=== PATIENT | male | born 1950 | race Caucasian/White ===

== ENCOUNTER 2024-02-25 06:48 | Day surgery (SDC) | payer OTHER ==
[2024-02-25] VITALS (12 sets, daily range): BP systolic 88–130; BP diastolic 40–70; PULSE 59–69; RESP 14–18; TEMP 97.5–98.1
[~2024-02-25] VITALS: Ht 188 cm; Wt 93.0 kg
[~2024-02-25 06:48] MED LIST: CETI10CA5 PO; CLOP-31 PO; FURO20TA4 PO; MULT-1367 PO; ROSU10TA72 PO; TRAZ-187 PO; VALS80TA30 PO
[2024-02-25] MEDS: 0.9%NACL 1000ML 1,000 ML IV ONE (07:52)
[2024-02-25] MEDS ORDERED: proPOFol 10 MG/ML 20ML VIAL IV ONE (10:22)
== END 2024-02-25 12:25 | disposition home or self-care (01) ==
LOC: ENDO 06:48 → DAH 06:48 → ENDO 12:25
PROVIDERS: ATTEND Internal Medicine Gastroenterology
DX: K92.1 Melena (principal); I10 Essential (primary) hypertension; E78.5 Hyperlipidemia, unspecified; Z86.73 Personal history of transient ischemic attack (TIA), and cerebral infarction without residual deficits; Z79.899 Other long term (current) drug therapy; Z80.0 Family history of malignant neoplasm of digestive organs; Z53.8 Procedure and treatment not carried out for other reasons
CPT/HCPCS: 45378; J7030 ×2; J2704; A4215; A7002; G0105; J3490

== ENCOUNTER 2024-02-26 06:24 | Day surgery (SDC) | payer OTHER ==
[~2024-02-26] VITALS: Ht 188 cm; Wt 93.0 kg
[2024-02-26] VITALS (10 sets, daily range): BP systolic 91–135; BP diastolic 48–64; PULSE 64–73; RESP 15–18; TEMP 97.5–99.9
[2024-02-26] MEDS: 0.9%NACL 1000ML 1,000 ML IV ONE (08:37)
[2024-02-26] MEDS ORDERED: proPOFol 10 MG/ML 20ML VIAL IV ONE (09:21)
== END 2024-02-26 10:40 | disposition home or self-care (01) ==
LOC: DAH 06:24 → ENDO 06:24
PROVIDERS: ATTEND Internal Medicine Gastroenterology
DX: K92.1 Melena (principal); K64.0 First degree hemorrhoids; K64.4 Residual hemorrhoidal skin tags; I10 Essential (primary) hypertension; E78.5 Hyperlipidemia, unspecified; Z86.73 Personal history of transient ischemic attack (TIA), and cerebral infarction without residual deficits; Z80.0 Family history of malignant neoplasm of digestive organs; Z79.899 Other long term (current) drug therapy
CPT/HCPCS: 45378; J7030 ×2; J2704; A4620; A4215; A4223; A7002; A4222; A4221; A4663; A4606; J3490